=== PATIENT | female | born 1980 | race Caucasian/White ===

== ENCOUNTER → 2019-06-30 | Outpatient (CLI) | payer BC ==
--- NOTE | 2019-07-01 09:34 | REP ---
LEFT HIP COMPLETE: 06/30/2019. CLINICAL HISTORY: Left hip pain. States pain radiates down the leg, 3-months duration. FINDINGS: AP and frog-leg views of the hip show hip joint space preserved. There is no evidence of femoral head rim osteophyte formation. There is no subchondral sclerosis nor evidence of AVN in the femoral head. The femoral neck, trochanters, proximal shaft, and the iliac bone, along with the acetabulum and the visualized ischium are unremarkable. IMPRESSION: 1. Negative left hip series. Electronically Signed by Mike Hayes MD 07/01/2019 10:19 A
== END ==
LOC: M WUC 11:40
PROVIDERS: ATTEND Physician Assistant
DX: M25.552 Pain in left hip (principal)

== ENCOUNTER → 2020-04-23 | Outpatient (REF) | payer BC | LOC: M WUC 09:41 | PROVIDERS: ATTEND Physician Assistant | DX: N39.0 Urinary tract infection, site not specified (principal) ==

== ENCOUNTER → 2023-03-09 | Outpatient (CLI) | payer BC | LOC: M WHC 08:46 | PROVIDERS: ATTEND Obstetrics & Gynecology | DX: Z12.31 Encounter for screening mammogram for malignant neoplasm of breast (principal) ==

== ENCOUNTER → 2025-04-19 | Outpatient (REF) | payer BC | LOC: M LAB REF 11:52 | PROVIDERS: ATTEND Nurse Practitioner Family | DX: R30.0 Dysuria (principal) ==

== ENCOUNTER → 2025-04-26 | Outpatient (CLI) | payer BC | LOC: M WHC 15:33 | PROVIDERS: ATTEND Obstetrics & Gynecology | DX: Z12.31 Encounter for screening mammogram for malignant neoplasm of breast (principal) ==